=== PATIENT | female | born 1960 | race Caucasian/White ===

== ENCOUNTER 2024-11-12 13:32 | Emergency (ER) | payer MEDICARE, SELFPAY ==
[2024-11-12] VITALS (7 sets, daily range): BP systolic 128–162; BP diastolic 60–93; PULSE 69–77; RESP 12–24; TEMP 36.7–37.1; O2SAT 100; BMI 33.8
--- NOTE | ~2024-11-12 | CT_ITS ---
EXAMINATION: CT ANGIOGRAM HEAD AND NECK CLINICAL INFORMATION: History of FMD with stents. Near syncope. COMPARISON: None available. TECHNIQUE: Noncontrast axial imaging of the head was performed. This was followed by test bolus sequences and head and neck intravenous bolus administration 70 mL of Omnipaque 350. Helical imaging was performed in the axial plane from the aortic arch to the skull vertex. The data was processed at the angio technologist's workstation for generation of MIP sequences. Angled MIPs and volume rendered reformatted images were also generated at an offline 3D workstation. Stenoses are assessed in accordance with NASCET criteria unless otherwise indicated. This CT examination was performed using dose optimization techniques as appropriate, variously including the following: *Automated exposure control *Adjustment of mA and/or kV according to patient size (this includes techniques or standardized protocols for targeted exams where dose is matched to indication/reason for exam; i.e. extremities or head) *Use of iterative reconstruction technique FINDINGS: NONCONTRAST HEAD CT: There is no evidence of intracranial hemorrhage or extra-axial fluid collection. There is no mass effect, or edema. No CT evidence of acute territorial infarct. Ventricles, sulci, and cisterns are normal in size and configuration for patient age. Mild prominence of the right lateral ventricular atrium, likely within normal limits. No hydrocephalus. No midline shift. No significant white matter abnormalities. Empty sella noted. Mild atheromatous calcification of the bilateral carotid siphons and V4 segments vertebral arteries bilaterally. There is a stent within the right transverse sinus. There is a stent within the left transverse sinus. Globes and orbital contents image normally. No extracranial soft tissue abnormalities. The paranasal sinuses, mastoid air cells, and tympanic cavities are normally aerated. No suspicious bony abnormalities. NECK CTA: -AORTIC ARCH: Normal in caliber. Mild atheromatous calcification. Three-vessel branching pattern. -GREAT VESSEL ORIGINS: Tortuous brachiocephalic artery. Tortuous left common carotid artery. Widely patent. No stenosis. -RIGHT COMMON CAROTID ARTERY: Normal in course and caliber to the level of the bifurcation. -CERVICAL RIGHT INTERNAL CAROTID ARTERY: Normal opacification without focal stenosis or occlusion. Mild beading of the artery the cervical segment consistent with history of FMD. -LEFT COMMON CAROTID ARTERY: Normal in course and caliber to the level of the bifurcation. -CERVICAL LEFT INTERNAL CAROTID ARTERY: Normal opacification without focal stenosis or occlusion. -CERVICAL RIGHT VERTEBRAL ARTERY: Codominant. Normal in course and caliber into the skull base. -CERVICAL LEFT VERTEBRAL ARTERY: Normal in course and caliber into the skull base. OTHER, SOFT TISSUES: -No lymphadenopathy or mass. No abnormal fluid collection or soft tissue swelling. -There has been a thyroidectomy. -Imaged superior mediastinal structures normal. -Imaged lung apices demonstrate mosaic attenuation, likely secondary to partial expiratory state/air trapping. CTA OF THE BRAIN: -INTRACRANIAL INTERNAL CAROTID ARTERIES: Mild Calcific atherosclerotic disease of the intracranial internal carotid arteries without occlusion or flow-limiting stenosis. -RIGHT ANTERIOR CEREBRAL ARTERY: Normal A1 segment.. Normal arborization of the distal segments. -LEFT ANTERIOR CEREBRAL ARTERY: Normal A1 segment.. Normal arborization of the distal segments. -ANTERIOR COMMUNICATING ARTERY: Normal. -RIGHT MIDDLE CEREBRAL ARTERY: Normal M1 segment of the MCA without focal stenosis or occlusion. Normal arborization of the distal segments. -LEFT MIDDLE CEREBRAL ARTERY: Normal M1 segment of the MCA without focal stenosis or occlusion. Normal arborization of the distal segments. -RIGHT VERTEBRAL ARTERY V4: Normal in course and caliber. -LEFT VERTEBRAL ARTERY V4: Normal in course and caliber. -BASILAR ARTERY: Normal without focal stenosis or occlusion. Normal appearance of the proximal superior cerebellar arteries. Normal basilar tip. -RIGHT POSTERIOR CEREBRAL ARTERY: Normal P1 segment. Normal opacification of the distal LABEL REMOVER segments. -LEFT POSTERIOR CEREBRAL ARTERY: Normal P1 segment. Normal opacification of the distal LABEL REMOVER segments. -POSTERIOR COMMUNICATING ARTERIES: The right is small but patent. The left is not well seen. 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 Normal opacification of the superior sagittal, straight, transverse, and sigmoid sinuses. Transverse sinus stents are patent. No venous thrombosis. No space-occupying hemorrhage or definite evolving infarct. CT/CT angio head neck IMPRESSION: NONCONTRAST HEAD CT: 1. No evidence of intracranial hemorrhage or mass effect. No CT evidence of acute territorial ischemic infarct. CTA NECK: 1. Mild beading/irregularity of the right cervical ICA in keeping with known FMD. The left carotid has a normal appearance. 2. No significant arterial stenosis, occlusion, dissection, or aneurysm. 3. Thyroidectomy. CTA HEAD: 1. No evidence of significant arterial stenosis, occlusion, dissection, or aneurysm. 2. No evidence of FMD involvement in the intracranial arteries. 3. Persistent left trigeminal artery. 4. There are patent stents within the bilateral transverse sinuses. No major cortical or dural venous thrombosis. Electronically signed by: Renan Christensen MD 11/12/2024 04:46 PM EDT
--- NOTE | 2024-11-12 13:38 | ECG_ITS ---
Test Reason : dizziness Blood Pressure : */* mmHG Vent. Rate : 67 BPM Atrial Rate : 67 BPM P-R Int : 150 ms QRS Dur : 78 ms QT Int : 388 ms P-R-T Axes : 18 -23 35 degrees QTcB Int : 409 ms Normal sinus rhythm Low voltage QRS Borderline ECG No previous ECGs available Referred By: Generic ED Physician Electronically Signed By: MEGAN ARANDA
--- NOTE | 2024-11-12 13:56 | ED_ITS ---
HPI - Dizziness General Chief Complaint: Dizziness Stated Complaint: High BP, dizziness Time Seen by Provider: 11/12/24 14:05 Source: patient, RN notes reviewed and old records reviewed Mode of arrival: ambulatory Limitations: no limitations History of Present Illness ED Provider: Maddie [facility] Narrative: Patient is a 64-year-old female with history of fibromuscular dysplasia with 3 stents presenting to the emergency department with complaint of multiple near syncopal episodes since September. Described initial episode as a buzzing/zapping sensation to the top of her head, then she became very lightheaded and near- syncopal but denies full loss of consciousness. was with her at the time and confirms this. She denies pain/headache, states she did not feel dizzy or like the room was spinning. A few weeks later on 10/26 while in [place] she had a similar episode. She then drove home from [place], and had one additional episode after returning home. Over the past week has experienced significant fatigue, palpitations, and longer episodes of lightheadedness. Also reports heaviness with breathing but states it's not like an elephant sitting on my chest. State has had vertigo before and symptoms now do not feel similar at all. Saw PCP yesterday and notes that her BP was more elevated than normal, usually one teens over 70's, yesterday was 140's over 80's. States she was also notified at her PCP appointment that her levothyroxine needed to be increased, she just started new dose today. elicited complaint: lightheadedness and near syncope Related Data Allergies Allergy/AdvReac Type Severity Reaction Status Date / Time No Known Allergies Allergy Verified 11/12/24 13:49 Review of Systems 2 Review of Systems: As per HPI Yes all other systems are reviewed and are negative Constitutional: Constitutional: Reports as per HPI [facility] Social History Social History Alcohol intake: current Alcohol intake frequency: 0-2 drinks per day Alcohol type: wine Smoked in Last 30 Days: No Use of substances other than those prescribed or required for medical reasons: No Advance Directives: Yes Advance Directives Information Provided: No Advance Directives on File: No Do you have a plan to hurt others: No Plan Physical Exam 2 Vital Signs: Vital Signs: Last Vital Signs Temp 98.0 F 11/12/24 16:26 Pulse 69 11/12/24 16:26 Resp 24 H 11/12/24 16:26 BP 128/60 11/12/24 16:26 Pulse Ox 100 11/12/24 16:26 O2 Del Method Room Air 11/12/24 16:26 BMI result Body Mass Index 33.8 Vital signs have been reviewed and appear to be correct. Blood pressure elevated. Heart rate normal. Respiratory rate normal. Temperature normal. Oxygen saturation normal. Const: General: cooperative, healthy appearing and no acute distress O rientation/consciousness: oriented to person, oriented to place, oriented to time and patient oriented x3 Limitations: no limitations HEENT: Head: Yes normocephalic and Yes atraumatic Ears: external ears normal General nose exam: Normal external nose present Face and sinus: Yes face symmetric Mouth: oropharynx normal and moist mucous membranes Throat: Yes uvula midline Eyes: Pupils: Equal, round and reactive pupils present EOM: EOMs intact bilaterally and No Nystagmus present Neck: Neck: Yes normal visual inspection and Yes supple Resp: Effort & Inspection: normal respiratory effort and able to speak in complete sentences Auscultation: clear to auscultation bilaterally Cardio: Rate: regular rate Rhythm: regular rhythm Heart sounds: S1 normal heart sound present and S2 normal heart sound present GI: Palpation (GI): Soft to palpation and nontender Auscultation: n ormoactive bowel sounds : General: Yes no CVA tenderness Back/Spine/Pelvis: Back: no CVA tenderness Skin: General skin exam: elasticity normal and turgor normal Neuro: General: oriented to person, oriented to place, oriented to time, patient oriented x3, gait normal, tone normal, moves all extremities, Normal light touch and pain sensation, no focal motor deficits, CN's II-XI intact bilaterally and deep tendon reflexes 2+ bilaterally Cranial nerves: Yes Equal, round and reactive pupils present and No Nystagmus present Cognition (Neuro): normal cognition Motor exam (neuro): 5/5 motor strength present throughout, Normal motor muscle tone present throughout and Motor abnormalities not present Coordination: [id number] test normal, [id number] test normal and Romberg test negative Extrem: General: Yes full ROM, Yes no pedal edema and Yes no calf tenderness Psych: Mental Status: mental status grossly normal Affect: normal affect Thought process: Normal thought process present Course Course Course Narrative: This is an RME: Additional HPI, ROS, PE not included below will be deferred to primary provider. RME assessment and note performed by: Nikki Mitchell PA-C This is a [id number]-female, with a hx of fibromuscular dysplasia with 3 cerebral stents, with complaints of dizziness x several months. Reports that she has had left sided chest pressure, palpitations, and worsening dizziness. BPs elevated at home. Recent travel to [place]. Plan: Labs, EKG, further ER eval needed Medications Administered Discontinued Medications Generic Name Dose Route Start Last Admin Trade Name Negrita PRN Reason Stop Dose Admin Iohexol 100 ml 11/12/24 15:50 11/12/24 15:51 Iohexol 350 Mg/Ml 100 Ml Infus..Btl IV 11/12/24 15:51 70 ml ONCE ONE Administration Medical Decision Making Medical Decision Making [facility] Narrative: Patient is a 64-year-old female with history of fibromuscular dysplasia with 3 stents presenting to the emergency department with complaint of multiple near syncopal episodes since September. On exam patient is awake, A+Ox3, VS WNL, afebrile, normal neurological exam without focal deficits, physical exam findings as above. Given reported symptoms and physical exam findings, initial differential includes but is not limited to cardiac arrhythmia, electrolyte abnormality, dehydration, TIA, vertebrobasilar insufficiency, aneurism, dissection, ICH, PE, anemia. Unlikely BPPV or vestibular neuritis. Labs notable for no leukocytosis, no anemia, negative D-dimer, no significant electrolyte abnormalities, negative troponin. EKG shows normal sinus rhythm. CT/CTA head and neck notable for no evidence of ICH, occlusion, ischemia or infarct, stenosis, occlusion, dissection or aneurism. My interpretation is in agreement with the radiologist's interpretation. Results discussed with patient and all questions answered. Will refer to cardiology for further evaluation of symptoms. Return precautions discussed at bedside. Patient verbalized understanding of and agreement with plan. Differential Diagnosis Differential Diagnoses: The differential diagnosis associated with the presentation includes as per [facility] Admission/Observation Consideration of admission/observation: Escalation of care including admission/observation considered Patient would have been admitted to the hospital had their work up had any findings where hospital admission was appropriate and their clinical presentation warranted hospital admission. Lab Data [facility] Lab Attestation statement: I reviewed the patient's lab results. As per [facility] 11/12/24 14:09 11/12/24 14:09 Labs: Lab Results 11/12/24 11/12/24 Range/Units 14:09 14:33 WBC 9.6 (4.8-10.8) X10*3/uL RBC 4.49 (4.20-5.50) X10*6/uL Hgb 12.7 (12.0-16.0) g/dl Hct 40.1 (37.0-47.0) % MCV 89.3 (80.0-98.0) fL MCH 28.3 (27.0-33.0) pg MCHC 31.7 (31.0-35.0) g/dl RDW 14.4 (11.0-16.0) % Plt Count 403 H (160-400) X10*3/uL MPV 9.7 (9.4-12.3) fL Immature Gran % (Auto) 0.5 H (0.0-0.4) % Neut % (Auto) 62.1 (45-73) % Lymph % (Auto) 26.8 (20-40) % Collier % (Auto) 6.2 (2-11) % Eos % (Auto) 3.4 (0-4) % Baso % (Auto) 1.0 (0-2) % Lymph # (Auto) 2.6 (1.2-4.9) X10*3/uL Collier # (Auto) 0.6 (0.1-1.2) X10*3/uL Eos # (Auto) 0.3 (0.0-0.4) X10*3/uL Baso # (Auto) 0.1 (0.0-0.2) X10*3/uL Abs Immat Gran (auto) 0.05 H (0.00-0.03) X10*3/uL Absolute Neuts (auto) 5.9 (2.0-8.3) x10*3/uL Absolute Nucleated RBC 0.000 (0.0-0.012) X10*3/uL Nucleated RBC % (auto) 0.0 (0.0-0.2) /100WBC D-Dimer High Sensitivty < 150 NG/ML Sodium 141 (135-145) mmol/L Potassium 3.7 (3.3-5.1) mmol/L Chloride 107 (96-108) mmol/L Carbon Dioxide 27 (22-29) mmol/L Anion Gap 11 L (12-20) BUN 15 (9-16) mg/dL Creatinine 0.61 (0.5-1.4) mg/dL Estim Creat Clear Calc 93.5 Estimated GFR > 60 Random Glucose 89 (60-115) mg/dL Calcium 9.8 (8.4-10.2) mg/dL Magnesium 2.0 (1.6-2.6) mg/dL Total Bilirubin 0.3 (0.0-1.0) mg/dL Direct Bilirubin 0.1 (0.0-0.5) mg/dL AST 18 (5-31) U/L ALT 16 (0-31) U/L Alkaline Phosphatase 81 (39-117) U/L Troponin I High Sens < 2.7 (<3.5-17.0) ng/L Total Protein 6.9 (6.5-8.0) g/dL Albumin 4.4 (3.5-5.0) g/dL TSH 2.54 (0.32-4.0) uIU/mL Influenza Type A (PCR) NEGATIVE (Negative) Influenza Type B (PCR) NEGATIVE (Negative) RSV RNA Qual (PCR) NEGATIVE (Negative) SARS-CoV-2 RNA (RT-PCR) NEGATIVE (Negative) Independent Interpretation I performed an independent interpretation of an: EKG (normal sinus rhythm, rate 67 bpm, normal UT interval and QTc) and CT Scan Interpretation: CT/CTA head and neck notable for no evidence of ICH, occlusion, ischemia or infarct, stenosis, occlusion, dissection or aneurism Radiology Impression Discussion of test interpretation with radiology: I have reviewed the radiologist's reading. Radiologist Impression: CT/CT angio head neck IMPRESSION: NONCONTRAST HEAD CT: 1. No evidence of intracranial hemorrhage or mass effect. No CT evidence of acute territorial ischemic infarct. CTA NECK: 1. Mild beading/irregularity of the right cervical ICA in keeping with known FMD. The left carotid has a normal appearance. 2. No significant arterial stenosis, occlusion, dissection, or aneurysm. 3. Thyroidectomy. CTA HEAD: 1. No evidence of significant arterial stenosis, occlusion, dissection, or aneurysm. 2. No evidence of FMD involvement in the intracranial arteries. 3. Persistent left trigeminal artery. 4. There are patent stents within the bilateral transverse sinuses. No major cortical or dural venous thrombosis. Independent Historian Clinical information obtained from an independent historian. History obtained from or confirmed by: Spouse External Record Review External record reviewed: Inpatient record, Office record and Outpatient record Discharge Plan Discharge Clinical Impression: Near syncope Patient Disposition: Home, Self-Care Instructions: Near Syncope (ED) Additional Instructions: You were evaluated in the emergency department today for lightheadedness, near syncope, and fatigue. Your evaluation did not reveal evidence of conditions requiring emergent medical treatment at this time. We recommend further evaluation and are referring you to cardiology. We also recommend that you follow-up with your primary care provider. Continue to check your blood pressure readings at home as advised by your PCP. Return to the emergency department if you experience persistent dizziness, difficulty walking, severe headache, fainting, chest pain, difficulty breathing, or any other new or concerning symptoms. Referrals: [facility] [place] [facility] [Provider Group] - 1 week Clinical Impression: Near syncope Print Language: Polish
[2024-11-12 14:14] LABS: MANUAL DIFF FLAG NO
[2024-11-12 14:16] LABS: Basophils Absolute Auto 0.1 X10*3/uL (0.0-0.2); Eosinophils Absolute Auto 0.3 X10*3/uL (0.0-0.4); Eosinophils Percent Auto 3.4 % (0-4); Hematocrit 40.1 % (37.0-47.0); Hemoglobin 12.7 g/dl (12.0-16.0); Imm Gran Abs Auto 0.05 X10*3/uL (0.00-0.03); Imm Gran Pct Auto 0.5 % (0.0-0.4); Lymphocytes Absolute Auto 2.6 X10*3/uL (1.2-4.9); Lymphocytes Percent Auto 26.8 % (20-40); Mean Corpuscular HGB Conc 31.7 g/dl (31.0-35.0); Mean Corpuscular Hemoglobin 28.3 pg (27.0-33.0); Mean Corpuscular Volume 89.3 fL (80.0-98.0); Mean Platelet Volume 9.7 fL (9.4-12.3); Monocytes Absolute Auto 0.6 X10*3/uL (0.1-1.2); Monocytes Percent Auto 6.2 % (2-11); Neutrophils Absolute Auto 5.9 x10*3/uL (2.0-8.3); Neutrophils Percent Auto 62.1 % (45-73); Platelet Count 403 X10*3/uL (160-400); Red Blood Count 4.49 X10*6/uL (4.20-5.50); Red Cell Distribution Width 14.4 % (11.0-16.0); White Blood Count 9.6 X10*3/uL (4.8-10.8)
[2024-11-12 14:33] LABS: Alanine Aminotransferase 16 U/L (0-31); Albumin Level 4.4 g/dL (3.5-5.0); Alkaline Phosphatase 81 U/L (39-117); Anion Gap 11 (12-20); Aspartate Amino Transferase 18 U/L (5-31); Bilirubin Direct 0.1 mg/dL (0.0-0.5); Bilirubin Total 0.3 mg/dL (0.0-1.0); Blood Urea Nitrogen 15 mg/dL (9-16); Calcium 9.8 mg/dL (8.4-10.2); Carbon Dioxide 27 mmol/L (22-29); Chloride 107 mmol/L (96-108); Creatinine Clr Calc Pharmacy 93.5; Estimated Glomerular Filt Rate > 60; Glucose Random 89 mg/dL (60-115); Potassium 3.7 mmol/L (3.3-5.1); Sodium 141 mmol/L (135-145); Total Protein 6.9 g/dL (6.5-8.0)
[2024-11-12 14:39] LABS: Troponin-I High Sensitivity < 2.7 ng/L (<3.5-17.0)
[2024-11-12 14:51] LABS: D Dimer High Sensitivity < 150 NG/ML
[2024-11-12 14:52] LABS: TSH reflex Free T4 2.54 uIU/mL (0.32-4.0)
[2024-11-12 15:02] LABS: Influenza A PCR NEGATIVE (Negative); Influenza B PCR NEGATIVE (Negative); Resp Syncy Virus RNA Qual PCR NEGATIVE (Negative); SARS COV2 PCR INHOUSE NEGATIVE (Negative)
[2024-11-12] MEDS: iohexoL 350 MG/ML 100 ML INFUS..BTL IV (15:51)
--- OUTSIDE RECORDS SUMMARY | 2024-11-12 17:27 | XMS_ITS | Patient Health Record ---
Author Organization [facility] Address [address] [place] [id number] Care Team Providers Care Jewel Bearing Broacher Name Role Phone THOMPSON SALDIVAR Primary Care Provider [phone] Reason For Referral No Information Problems Problem Type SNOMED Code ICD Code Onset Dates Problem Status W/U Status Risk Notes Problem Hypertensive disorder (18345860) HYPERTENSIVE DISORDER (I10) 8 0 confirmed Problem Hypertensive disorder (98409746) HYPERTENSIVE DISORDER (401.9) 8 0 confirmed Plan Of Treatment No Information
== END 2024-11-12 17:55 | disposition home or self-care (01) ==
PROVIDERS: Physician Assistant Medical; Registered Nurse Emergency; Emergency Provider Emergency Medicine; PCP Student in an Organized Health Care Education/Training Program
DX: R55 Syncope and collapse (principal); R42 Dizziness and giddiness; R94.31 Abnormal electrocardiogram [ECG] [EKG]; Z03.818 Encounter for observation for suspected exposure to other biological agents ruled out; Z79.899 Other long term (current) drug therapy
CPT/HCPCS: 0241U; 36415; 70496; 70498; 80048; 80076; 83735; 84443; 84484; 85025; 85379; 93005; 99284; Q9967

== ENCOUNTER → 2024-11-12 13:38 | Outpatient (BNV) | payer MEDICARE, SELFPAY | PROVIDERS: Emergency Provider Emergency Medicine; PCP Student in an Organized Health Care Education/Training Program; Visit Provider Internal Medicine | DX: R42 Dizziness and giddiness (principal) | CPT/HCPCS: 93010 ==

== ENCOUNTER → 2024-11-12 14:26 | Outpatient (BNV) | payer MEDICARE, SELFPAY | PROVIDERS: Emergency Provider Emergency Medicine; PCP Student in an Organized Health Care Education/Training Program; Visit Provider Radiology Diagnostic Radiology | DX: I67.2 Cerebral atherosclerosis (principal) | CPT/HCPCS: 70496; 70498 ==

== ENCOUNTER 2024-12-01 19:30 | Emergency (ER) | payer MEDICARE, SELFPAY ==
--- NOTE | ~2024-12-01 | CT_ITS ---
CLINICAL HISTORY: found on floor unresponsive CT cervical spine without contrast Comparison: None Findings: There is straightening of the normal cervical lordosis. No fracture or acute malalignment. Mild multilevel degenerative changes with disc space narrowing throughout the cervical spine. The facet joints are normally imbricated. No prevertebral soft tissue edema. Lung apicies demonstrate no acute process. Impression: Mild degenerative changes without evidence of acute fracture or acute malalignment. This document has been electronically signed by: Mikey Oneill MD on 12/01/2024 21:24:47
--- NOTE | ~2024-12-01 | CT_ITS ---
CLINICAL HISTORY: AMS right sided mouth droop CT angiography head and neck with contrast. 3D Post-processing. Comparison: None Findings: CTA head: No intracranial large vessel occlusion. No dissection or aneurysm. The intracranial segments of the internal carotid arteries are patent bilaterally. Intradural vertebral arteries are patent. Anterior and posterior circulation appears widely patent. Transverse sinus stents are noted, patent appearing No abnormal postcontrast enhancement. CTA neck: There is a normal branching pattern of the aortic arch. The right common, internal and external carotid arteries are patent with no significant stenosis. The left common, internal and external carotid arteries are patent with no significant stenosis. The vertebral arteries are patent. Postsurgical changes along the thyroid bed. Impression: There is no intracranial large vessel occlusion detected. Transverse sinus stents appear patent. No significant stenosis of the neck vasculature. Incidental findings as detailed. This document has been electronically signed by: Mikey Oneill MD on 12/01/2024 20:40:19
--- NOTE | ~2024-12-01 | CT_ITS ---
CLINICAL HISTORY: AMS, R mouth droop CT head without contrast Comparison: CT/SR - CT HEAD NECK ANGIOGRAPHY WITH IV CONTRAST - 11/12/24 15:35 EDT Findings: No intra-axial mass, midline shift, hydrocephalus, or acute hemorrhage. No significant atrophy-like change or white matter disease. There is no sinus or mastoid fluid. The orbits are unremarkable. No skull fracture. IMPRESSION: 1. No acute intracranial findings. This document has been electronically signed by: Mikey Oneill MD on 12/01/2024 20:04:37
[2024-12-01 19:30] VITALS: BP 157/93; PULSE 88; O2SAT 98; BMI 31.1
--- NOTE | 2024-12-01 19:35 | ECG_ITS ---
Test Reason : UNRESPONSIVE Blood Pressure : */* mmHG Vent. Rate : 82 BPM Atrial Rate : 82 BPM P-R Int : 158 ms QRS Dur : 82 ms QT Int : 368 ms P-R-T Axes : 40 -10 37 degrees QTcB Int : 429 ms Normal sinus rhythm Normal ECG When compared with ECG of 12-Nov-2024 13:38, No significant change was found Referred By: Tammie Shea Electronically Signed By: MEGAN ARANDA
[2024-12-01 19:36] LABS: Glucose, Whole Blood 88 mg/dL (60-115)
--- NOTE | 2024-12-01 19:54 | ED.GENADULT ---
HPI - General Adult General Chief complaint: Stroke Stated complaint: stroke alert, r side facial droop, unrespnsive Time Seen by Provider: 12/01/24 19:33 Source: EMS Mode of arrival: EMS Limitations: altered mental status History of Present Illness ED Provider: Dr. Tammie Shea HPI narrative: Patient comes to the emergency room via EMS. According to EMS, seems that patient had a possible syncopal episode? Possible stroke? Seems that patient was at home and she suddenly collapsed. EMS reports that patient had a right-sided facial droop. On arrival, patient drooling, eyes open, altered mental status, not answering any questions. Not following commands. EMS reports the family mentioned that patient was drinking alcohol and when the patient's significant other enter the house, he heard a loud noise, ran outside and noticed that the patient was on the floor. Related Data Allergies Allergy/AdvReac Type Severity Reaction Status Date / Time No Known Allergies Allergy Verified 12/01/24 19:57 Review of Systems Review of Systems: Yes Unobtainable due to mental status PMFSH Past Medical History Medical History Fibromuscular dysplasia Social History Social History Alcohol intake: current Alcohol intake frequency: 0-2 drinks per day Alcohol type: wine Advance Directives: Yes Advance Directives Information Provided: No Advance Directives on File: No Physical Exam ED Vital Signs: Vital Signs - 24 hr 12/01/24 19:59 Temperature 98.8 F Pulse Rate 79 Respiratory Rate 17 Blood Pressure 136/84 Pulse Oximetry 94 Oxygen Delivery Method Room Air BMI result Body Mass Index 31.1 Const Other: Appearance: Alert. Seems very confused, possibly postictal? Under the influence of drugs/etoh? Eyes: Pupils equal, round and reactive to light. ENT: Pharynx normal. Neck: Normal inspection. Neck supple. No lymph nodes noted. No crepitus CVS: Normal heart rate and rhythm. Pulses normal. Normal S1 and S2 Respiratory: No respiratory distress. Breath sounds normal. No Wheezing. No rales Abdomen: Soft and nontender. No rigidity. No distention. Skin: Skin warm and dry. Normal skin color. Normal skin turgor. Extremities: No lower extremity edema. No Lacerations. No Rash Neuro: Patient has a eyes open, moving them side to side up and down. Patient not talking, not following commands. Unable to participating cranial nerve assessment Psych: Patient has altered mental status Course Course Course Narrative: Patient is altered. Unable to participate in cranial nerve assessment or answer questions. It is possible that patient may be under the influence of drugs versus alcohol intoxication versus seizures versus syncopal episode Patient will be taking to CAT scan According to the patient's nurse, the patient's significant other called, he was slurring his words as well. He seemed to be under the influence of alcohol. Unable to get much information Medications Administered Discontinued Medications Generic Name Dose Route Start Last Admin Trade Name Negrita PRN Reason Stop Dose Admin Iohexol 80 ml 12/01/24 20:15 12/01/24 20:16 Iohexol 350 Mg/Ml 100 Ml Infus..Btl IV 12/01/24 20:16 80 ml ONCE ONE Administration Medical Decision Making Medical Decision Making [facility] Narrative: About 3 weeks ago, patient was seen here. Her chief complaint was multiple near syncopal episodes. Head CT: No acute abnormality CTA does not show any acute abnormality My interpretation of labs: No significant abnormality in patient's hematology or chemistry. Lactic acid 3.2 negative troponin EKG: Normal sinus rhythm, heart rate 82, no ST segment depression or elevation, no T-wave inversion, QTC 429 Patient's lactic acid a bit bumped, IV fluids recommended. Patient requested discharge When patient arrived, patient's seems postictal. Then, within a few minutes, patient has started becoming while awake, alert and oriented x3, coherent. I discussed with the patient that given her recurrent symptoms of syncope/near-syncope and does have memory, it is possible that she may be experiencing seizures. I recommend admission. However, patient became tearful and started crying, begging me to discharging her. I discussed with the patient that she will not before Sender any circumstances to stay. However, it is strongly suggested. Patient decided to get discharged. Patient has knee injections that are due tomorrow. Patient states that if she misses her appointment, she needs to restart the whole process and she has borderline needing a knee replacement and is hoping that she will not have to get knee surgery. Patient states that she will have close follow-up with the primary care physician. Patient states that she has an appointment pending with cardiology, patient got a referral from us the last time that she had near syncopal episode. Also, patient aware that she will need to follow up with PCP, she may need a referral to Neurology, patient may need an EEG Differential Diagnosis Differential Diagnoses: The differential diagnosis associated with the presentation includes (Stroke, alcohol intoxication, TIA, pseudoseizures, anxiety) Admission/Observation Consideration of admission/observation: Escalation of care including admission/observation considered (Given patient's presentation and multiple syncopal/near syncopal events, observation/admission has been considered) Lab Data MDM Lab Attestation statement: I reviewed the patient's lab results. 12/01/24 20:50 12/01/24 19:51 Labs: Lab Results 12/01/24 12/01/24 12/01/24 Range/Units 19:33 19:51 20:18 WBC (4.8-10.8) X10*3/uL RBC (4.20-5.50) X10*6/uL Hgb (12.0-16.0) g/dl Hct (37.0-47.0) % MCV (80.0-98.0) fL MCH (27.0-33.0) pg MCHC (31.0-35.0) g/dl RDW (11.0-16.0) % Plt Count (160-400) X10*3/uL MPV (9.4-12.3) fL Immature Gran % (Auto) (0.0-0.4) % Neut % (Auto) (45-73) % Lymph % (Auto) (20-40) % [place] % (Auto) (2-11) % Eos % (Auto) (0-4) % Baso % (Auto) (0-2) % Lymph # (Auto) (1.2-4.9) X10*3/uL [place] # (Auto) (0.1-1.2) X10*3/uL Eos # (Auto) (0.0-0.4) X10*3/uL Baso # (Auto) (0.0-0.2) X10*3/uL Abs Immat Gran (auto) (0.00-0.03) X10*3/uL Absolute Neuts (auto) (2.0-8.3) x10*3/uL Absolute Nucleated RBC (0.0-0.012) X10*3/uL Nucleated RBC % (auto) (0.0-0.2) /100WBC PT 12.0 (10.9-12.4) SEC INR 1.0 (0.9-1.1) Sodium 140 (135-145) mmol/L Potassium 3.9 (3.3-5.1) mmol/L Chloride 107 (96-108) mmol/L Carbon Dioxide 20 L (22-29) mmol/L Anion Gap 17 (12-20) BUN 11 (9-16) mg/dL Creatinine 0.63 (0.5-1.4) mg/dL Estim Creat Clear Calc 100.4 Estimated GFR > 60 POC Glucose 88 (60-115) mg/dL Random Glucose 80 (60-115) mg/dL Lactic Acid 3.2 H* (0.5-2.0) mmol/L Calcium 8.6 D (8.4-10.2) mg/dL Total Bilirubin 0.2 (0.0-1.0) mg/dL Direct Bilirubin < 0.2 (0.0-0.5) mg/dL AST 22 (5-31) U/L ALT 19 (0-31) U/L Alkaline Phosphatase 64 (39-117) U/L Troponin I High Sens < 2.7 (<3.5-17.0) ng/L Total Protein 6.3 L (6.5-8.0) g/dL Albumin 4.2 (3.5-5.0) g/dL Urine Color Yellow Urine Appearance Clear Urine pH 5.5 (5.0-9.0) Ur Specific [place] 1.010 (1.005-1.025) Urine Protein Negative (Neg-Trace) mg/dL Urine Glucose (UA) Negative (Negative) mg/dL Urine Ketones Negative (Negative) mg/dL Urine Blood Negative (Negative) Urine Nitrite Negative (Negative) Ur Leukocyte Esterase Negative (Negative) Urine Opiates Screen Not Detected (Not Detect) Ur Buprenorphine Scrn Not Detected (Not Detect) ng/mL Ur Oxycodone Screen Not Detected (Not Detect) ng/mL Urine Methadone Screen Not Detected (Not Detect) ng/mL Urine Fentanyl Screen Not Detected (Not Detect) Ur Barbiturates Screen Not Detected (Not Detect) Ur Phencyclidine Scrn Not Detected (Not Detect) Ur Amphetamines Screen Not Detected (Not Detect) U Benzodiazepines Scrn Not Detected (Not Detect) Urine Cocaine Screen Not Detected (Not Detect) U Marijuana (THC) Screen Not Detected (Not Detect) Ethyl Alcohol 176 mg/dL 12/01/24 Range/Units 20:50 WBC 9.2 (4.8-10.8) X10*3/uL RBC 4.36 (4.20-5.50) X10*6/uL Hgb 12.8 (12.0-16.0) g/dl Hct 37.1 (37.0-47.0) % MCV 85.1 (80.0-98.0) fL MCH 29.4 (27.0-33.0) pg MCHC 34.5 (31.0-35.0) g/dl RDW 14.0 (11.0-16.0) % Plt Count 338 (160-400) X10*3/uL MPV 9.6 (9.4-12.3) fL Immature Gran % (Auto) 0.4 (0.0-0.4) % Neut % (Auto) 64.3 (45-73) % Lymph % (Auto) 25.5 (20-40) % [place] % (Auto) 6.5 (2-11) % Eos % (Auto) 2.5 (0-4) % Baso % (Auto) 0.8 (0-2) % Lymph # (Auto) 2.4 (1.2-4.9) X10*3/uL [place] # (Auto) 0.6 (0.1-1.2) X10*3/uL Eos # (Auto) 0.2 (0.0-0.4) X10*3/uL Baso # (Auto) 0.1 (0.0-0.2) X10*3/uL Abs Immat Gran (auto) 0.04 H (0.00-0.03) X10*3/uL Absolute Neuts (auto) 5.9 (2.0-8.3) x10*3/uL Absolute Nucleated RBC 0.000 (0.0-0.012) X10*3/uL Nucleated RBC % (auto) 0.0 (0.0-0.2) /100WBC PT (10.9-12.4) SEC INR (0.9-1.1) Sodium (135-145) mmol/L Potassium (3.3-5.1) mmol/L Chloride (96-108) mmol/L Carbon Dioxide (22-29) mmol/L Anion Gap (12-20) BUN (9-16) mg/dL Creatinine (0.5-1.4) mg/dL Estim Creat Clear Calc Estimated GFR POC Glucose (60-115) mg/dL Random Glucose (60-115) mg/dL Lactic Acid (0.5-2.0) mmol/L Calcium (8.4-10.2) mg/dL Total Bilirubin (0.0-1.0) mg/dL Direct Bilirubin (0.0-0.5) mg/dL AST (5-31) U/L ALT (0-31) U/L Alkaline Phosphatase (39-117) U/L Troponin I High Sens (<3.5-17.0) ng/L Total Protein (6.5-8.0) g/dL Albumin (3.5-5.0) g/dL Urine Color Urine Appearance Urine pH (5.0-9.0) Ur Specific [place] (1.005-1.025) Urine Protein (Neg-Trace) mg/dL Urine Glucose (UA) (Negative) mg/dL Urine Ketones (Negative) mg/dL Urine Blood (Negative) Urine Nitrite (Negative) Ur Leukocyte Esterase (Negative) Urine Opiates Screen (Not Detect) Ur Buprenorphine Scrn (Not Detect) ng/mL Ur Oxycodone Screen (Not Detect) ng/mL Urine Methadone Screen (Not Detect) ng/mL Urine Fentanyl Screen (Not Detect) Ur Barbiturates Screen (Not Detect) Ur Phencyclidine Scrn (Not Detect) Ur Amphetamines Screen (Not Detect) U Benzodiazepines Scrn (Not Detect) Urine Cocaine Screen (Not Detect) U Marijuana (THC) Screen (Not Detect) Ethyl Alcohol mg/dL Independent Interpretation I performed an independent interpretation of an: CT Scan Radiology Impression Discussion of test interpretation with radiology: I have reviewed the radiologist's reading. Radiologist Impression: No intra-axial mass, midline shift, hydrocephalus, or acute hemorrhage. No significant atrophy-like change or white matter disease. There is no sinus or mastoid fluid. The orbits are unremarkable. No skull fracture. IMPRESSION: 1. No acute intracranial findings. CTA head: No intracranial large vessel occlusion. No dissection or aneurysm. The intracranial segments of the internal carotid arteries are patent bilaterally. Intradural vertebral arteries are patent. Anterior and posterior circulation appears widely patent. Transverse sinus stents are noted, patent appearing No abnormal postcontrast enhancement. CTA neck: There is a normal branching pattern of the aortic arch. The right common, internal and external carotid arteries are patent with no significant stenosis. The left common, internal and external carotid arteries are patent with no significant stenosis. The vertebral arteries are patent. Postsurgical changes along the thyroid bed. Critical Care Time Critical Care Time Critical Care Time: Yes Total Critical Care Time: 60 Attestation: I have personally provided critical care time. Time includes review of lab data, radiology results, discussion with consultants, and monitoring for potential decompensation. Intervention performed as documented. Discharge Plan Discharge Clinical Impression: LOC (loss of consciousness) Patient Disposition: Left Against Medical Advice Instructions: Generalized Tonic Clonic Seizures (ED), Syncope (DC) Additional Instructions: At this time, it remains unclear why you are having this episodes of loss of consciousness, maybe seizures versus cardiac etiology. Admission was recommended but you declined. Please follow-up with your scheduled appointments, please follow-up with the primary care physician. You may need a referral to Neurology . Print Language: Greenlandic
[2024-12-01 19:59] VITALS: BP 136/84; PULSE 79; RESP 17; TEMP 37.1; O2SAT 94
--- NOTE | 2024-12-01 20:05 | PC.NURSE ---
Pt becoming more responsive, answering yes/no questions, inquiring about boyfriend, continues to improve, provider given update
[2024-12-01] MEDS: iohexoL 350 MG/ML 100 ML INFUS..BTL 80 ML IV (20:16)
[2024-12-01 20:23] LABS: INTERNATIONAL NORM RATIO 1.0 (0.9-1.1); Prothrombin Time 12.0 SEC (10.9-12.4)
[2024-12-01 20:25] LABS: Appearance Urine Clear; Glucose Urine UA Negative (Negative); PH 5.5 (5.0-9.0); Specific Gravity - Urine 1.010 (1.005-1.025)
[2024-12-01 20:30] LABS: Alanine Aminotransferase 19 U/L (0-31); Albumin Level 4.2 g/dL (3.5-5.0); Alkaline Phosphatase 64 U/L (39-117); Anion Gap 17 (12-20); Aspartate Amino Transferase 22 U/L (5-31); Blood Urea Nitrogen 11 mg/dL (9-16); Calcium 8.6 mg/dL (8.4-10.2); Carbon Dioxide 20 mmol/L (22-29); Chloride 107 mmol/L (96-108); Creatinine Clr Calc Pharmacy 100.4; Estimated Glomerular Filt Rate > 60; Potassium 3.9 mmol/L (3.3-5.1); Sodium 140 mmol/L (135-145); Total Protein 6.3 g/dL (6.5-8.0)
[2024-12-01 20:35] LABS: Cannabinoid Screen Urine Not Detected (Not Detect)
[2024-12-01 20:39] LABS: Troponin-I High Sensitivity < 2.7 ng/L (<3.5-17.0)
[2024-12-01 20:56] LABS: MANUAL DIFF FLAG NO
[2024-12-01 20:57] LABS: Hematocrit 37.1 % (37.0-47.0); Hemoglobin 12.8 g/dl (12.0-16.0); Imm Gran Abs Auto 0.04 X10*3/uL (0.00-0.03); Imm Gran Pct Auto 0.4 % (0.0-0.4); Lymphocytes Absolute Auto 2.4 X10*3/uL (1.2-4.9); Mean Corpuscular HGB Conc 34.5 g/dl (31.0-35.0); Mean Corpuscular Hemoglobin 29.4 pg (27.0-33.0); Mean Corpuscular Volume 85.1 fL (80.0-98.0); NRBC Abs Auto 0.000 X10*3/uL (0.0-0.012); NRBC Pct Auto 0.0 /100WBC (0.0-0.2); Platelet Count 338 X10*3/uL (160-400); Red Blood Count 4.36 X10*6/uL (4.20-5.50); White Blood Count 9.2 X10*3/uL (4.8-10.8)
--- OUTSIDE RECORDS SUMMARY | 2024-12-01 21:14 | XMS_ITS | Patient Health Record ---
Author Organization [facility] Address [address] [place] [id number] Care Team Providers Care Nuclear Control Operator Name Role Phone THOMPSON SALDIVAR Primary Care Provider Reason For Referral No Information Problems Problem Type SNOMED Code ICD Code Onset Dates Problem Status W/U Status Risk Notes Problem Hypertensive disorder (27650633) HYPERTENSIVE DISORDER (I10) 8 0 confirmed Problem Hypertensive disorder (94702497) HYPERTENSIVE DISORDER (401.9) 8 0 confirmed Plan Of Treatment No Information
--- OUTSIDE RECORDS SUMMARY | 2024-12-01 21:14 | XMS_ITS | Patient Health Record ---
Author Organization [facility] Address [address] [place], [place] [id number] Care Team Providers Care Used Car [employer] Porter Name Role Phone Farshad Mills MD, Jenny Primary Care Provider JUAN PABLO Cabello Unavailable [phone] Reason For Referral No Information Medications Medication SIG (Take, Route, Frequency, Duration) Notes Start Date End Date Status Omeprazole 20 MG 1 capsule Orally Onc e a day Active Naproxen 500 MG 1 tablet as needed O rally every 12 hrs Active Carisoprodol 350 MG 1 tablet as needed O rally PRN Active hydrOXYzine HCl 50 MG 1 tablet as needed Orally every 6 hrs Active Ondansetron 4 MG 2 applications Orally PRN Active Docusate Sodium 100 MG 1 capsule as need ed Orally Once a day Active Omeprazole 20 MG 1 capsule Orally Onc e a day Active Docusate Sodium 100 MG 1 capsule as need ed Orally Once a day Active Synthroid 137 MCG 1 tablet Orally Once a day Active oxyCODONE HCl 10 MG 1 tablet as needed O rally every 6 hrs Active Gabapentin 300 MG 1 tablet Orally Thre e times a day Active ProAir HFA 108 (90 Base) MCG/ACT 2 puffs as needed Inhalation every 4 hrs Active Propranolol HCl 20 MG 1 tablet Orally once a day Active Propranolol HCl 20 MG 1 tablet Orally once a day Active LORazepam 1 MG 1 tablet as needed O rally 3 as needed Active LORazepam 1 MG 1 tablet as needed O rally 3 as needed Active Carisoprodol 350 MG 1 tablet as needed O rally PRN Active Ondansetron 4 MG 2 applications Orally PRN Active hydrOXYzine HCl 50 MG 1 tablet as needed Orally every 6 hrs Active Topiramate 50 MG 1 tablet Orally Twic e a day Active Sertraline HCl 25 MG 1 1/2 tablet Orally Once a day Active Naproxen 500 MG 1 tablet as needed O rally every 12 hrs Active oxyCODONE HCl 10 MG 1 tablet as needed O rally every 6 hrs Active ProAir HFA 108 (90 Base) MCG/ACT 2 puffs as needed Inhalation every 4 hrs Active Gabapentin 300 MG 1 tablet Orally Thre e times a day Active Topiramate 50 MG 1 tablet Orally Twic e a day Active Sertraline HCl 25 MG 1 1/2 tablet Orally Once a day Active Synthroid 137 MCG 1 tablet Orally Once a day Active Problems Problem Type SNOMED Code ICD Code Onset Dates Problem Status W/U Status Risk Notes Problem Gastroesophageal reflux disease (056926440) GERD (gastroesophageal reflux disease) (K21.9) Active confirmed Problem Osteoarthritis (410576943) Osteoarthritis (M19.90) Active confirmed Problem Chest pain (71307220) Chest pain (R07.9) Active confirmed Problem Palpitations (35568879) Palpitations (R00.2) Active confirmed Problem Hypothyroidism (24477076) Hypothyroidism (E03.9) Active confirmed Problem Dizziness (813342351) Dizziness (R42) Active confirmed Problem Neck pain (13851064) Neck pain (M54.2) Active confirmed Plan Of Treatment Pending Test Test Name Order Date EKG (Electrocardiogram) 03/08/2015 Echocardiogram 03/08/2015 Insurance Providers Payer Name Payer Address Payer Phone Subscriber Number Group Number Insured Name Patient Relationship to Insured Coverage Start Date Coverage End Date [facility] [facility] [facility] [address] [place] [phone] [id number] SELVIN COURTNEY Self - patient is the insured Medical (General) History Medical History History ICD Code Chest and neck pain Palpitations Dizziness Tobacco abuse Polyarthralgia GERD Hypothyroidism Osteoarthritis Surgical History Surgery Date(Month/Year) Thyroidectomy Vaginal hysterectomy section Tonsillectomy
--- OUTSIDE RECORDS SUMMARY | 2024-12-01 21:14 | XMS_ITS | Data Portability ---
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 walks and the L ankle. Pt reported having an MD appt and needing to leave 15 prior. Audra Paiz, RAFAEL [address] [place], [address], [facility] 01/14/2018 09:48:55 01/21/2018 text/html Daily Note KneeReported bypatient.Severity :pain level 4/10; L lateral foot constant. and increasing with weight acceptance.Notes:P t reporting compliance for HEP and has catching pain in her knee but it does not limit her funcitional activities. pt reported she is considering personal training services at local [employer]. Pt looking to change her appearance in 6 weeks. Audra Paiz, RAFAEL [address] [place], [address], [place] - [facility] 01/21/2018 13:47:58 01/28/2018 text/html Daily Note KneeReported bypatient.Severity :pain level 4/10; L lateral foot constant. and increasing with weight acceptance.Notes:P t reporting compliance for HEP and has catching pain in her knee but it does not limit her funcitional activities. Pt reporting canceling appt with [employer] and is going to seek out a personal financial advisor. Audra Paiz, RPT [address] [place], [address], [facility] - [facility] 01/28/2018 12:25:46 OBGyn Episode No OBEpisode recorded.
[2024-12-01 21:49] VITALS: BP 136/84; PULSE 79; RESP 17; TEMP 37.1; O2SAT 94
[2024-12-01 22:14] LABS: Reflex Lactate? Lactic Acid Added
== END 2024-12-01 21:52 | disposition left against medical advice (07) ==
PROVIDERS: Emergency Provider Emergency Medicine; PCP Student in an Organized Health Care Education/Training Program
DX: R55 Syncope and collapse (principal); R29.810 Facial weakness; R41.82 Altered mental status, unspecified; Z53.29 Procedure and treatment not carried out because of patient's decision for other reasons; Z13.89 Encounter for screening for other disorder; Z13.6 Encounter for screening for cardiovascular disorders
CPT/HCPCS: 36415; 70450; 70496; 70498; 72125; 80048; 80076; 80307; 81003; 82947; 83605; 84484; 85025; 85610; 93005; 99284; 99291; Q9967

== ENCOUNTER → 2024-12-01 19:34 | Outpatient (BNV) | payer MEDICARE, SELFPAY | PROVIDERS: Emergency Provider Emergency Medicine; Visit Provider Radiology Vascular & Interventional Radiology | DX: R41.82 Altered mental status, unspecified (principal); R29.810 Facial weakness | CPT/HCPCS: 70450; 70496; 70498; 72125 ==

== ENCOUNTER → 2024-12-01 19:35 | Outpatient (BNV) | payer MEDICARE, SELFPAY | PROVIDERS: Emergency Provider Emergency Medicine; PCP Student in an Organized Health Care Education/Training Program; Visit Provider Internal Medicine | DX: R40.20 Unspecified coma (principal) | CPT/HCPCS: 93010 ==